=== PATIENT | female | born 2000 | race Caucasian/White ===

== ENCOUNTER 2025-04-30 08:36 | Emergency (ER) | payer OTHER ==
[~2025-04-30] VITALS: Ht 167.6 cm; Wt 69.4 kg
[2025-04-30] MEDS ORDERED: PNV,1TAB3 PO (09:03)
[2025-04-30 11:10] LABS: BASO # 0.0 10^3/uL (0.0-0.2); BASO % 0.2 % (0.0-1.0); EOS # 0.0 10^3/uL (0.0-0.5); EOS % 0.4 % (0.0-3.0); LYMPH # 2.3 10^3/uL (1.5-5.0); LYMPH % 22.3 % (24.0-44.0); MONO # 0.5 10^3/uL (0.0-0.8); MONO % 5.1 % (2.0-8.0); NEUTROPHILS # 7.5 10^3/uL (1.5-8.5); NEUTROPHILS % 71.7 % (36.0-66.0)
[2025-04-30 11:44] LABS: ALT/SGPT 10 U/L (7.0-40); AST/SGOT 19 U/L (<34); CALCIUM LEVEL 9.5 MG/DL (8.5-10.1); CARBON DIOXIDE LEVEL 19 MMOL/L (20-31); CHLORIDE LEVEL 104 MMOL/L (98-107); CREATININE FOR GFR 0.44 MG/DL (0.55-1.30); GLOMERULAR FILTRATION RATE > 90.0 (>60); POTASSIUM SERUM 4.6 MMOL/L (3.5-5.1); SODIUM LEVEL 138 MMOL/L (136-145)
[2025-04-30 11:50] LABS: HCG, SERUM QUALITATIVE POSITIVE (NEGATIVE)
[2025-04-30 12:17] LABS: KETONE, URINE AUTO RFX 1+ mg/dL (NEGATIVE); LEUKOCYTE ESTERASE UR AUTO RFX NEGATIVE (NEGATIVE); MUCUS, URINE RFX SMALL (NEGATIVE); NITRITE, URINE AUTO RFX NEGATIVE (NEGATIVE); RBC, URINE AUTO RFX 0 /HPF (0-3); SQUAM EPITHELIAL CELL UR AURFX 1 /HPF (0-6); WBC, URINE AUTO RFX 2 /HPF (0-3)
[2025-04-30] MEDS: ONDANSETRON 4MG ORAL DISINTEGRATING TAB PO ONE (12:37)
[2025-04-30] MEDS: NS (Normal Saline) 0.9% 1,000 ML IV ONE (12:50)
[2025-04-30] MEDS ORDERED: HOME MED LIST COMPLETE! XX SCH (13:15)
[2025-04-30 14:30] VITALS: BP 115/63; TEMP 98.3; O2SAT 100
[2025-04-30] MEDS ORDERED: ONDA-282 PO (14:37)
== END 2025-04-30 14:48 | disposition home or self-care (01) ==
LOC: M ED 08:36
DX: O21.8 Other vomiting complicating pregnancy (principal); G90.A Postural orthostatic tachycardia syndrome [POTS]; Z3A.01 Less than 8 weeks gestation of pregnancy; Z79.83 Long term (current) use of bisphosphonates; Z79.899 Other long term (current) drug therapy

== ENCOUNTER 2025-05-02 12:09 | Emergency (ER) | payer OTHER ==
[~2025-05-02] VITALS: Ht 167.6 cm; Wt 69.3 kg
[~2025-05-02 12:09] MED LIST: ONDA-282 PO; PNV,1TAB3 PO
[2025-05-02 13:39] LABS: BASO # 0.0 10^3/uL (0.0-0.2); BASO % 0.2 % (0.0-1.0); EOS # 0.0 10^3/uL (0.0-0.5); EOS % 0.3 % (0.0-3.0); LYMPH # 2.4 10^3/uL (1.5-5.0); LYMPH % 19.9 % (24.0-44.0); MONO # 0.7 10^3/uL (0.0-0.8); MONO % 5.9 % (2.0-8.0); NEUTROPHILS # 8.7 10^3/uL (1.5-8.5); NEUTROPHILS % 73.3 % (36.0-66.0); PLATELET COUNT, AUTOMATED 336 10^3/uL (150-450)
[2025-05-02 14:08] LABS: ALT/SGPT 10 U/L (7.0-40); AST/SGOT 13 U/L (<34); CALCIUM LEVEL 9.2 MG/DL (8.5-10.1); CARBON DIOXIDE LEVEL 22 MMOL/L (20-31); CHLORIDE LEVEL 107 MMOL/L (98-107); CREATININE FOR GFR 0.47 MG/DL (0.55-1.30); GLOMERULAR FILTRATION RATE > 90.0 (>60); POTASSIUM SERUM 4.2 MMOL/L (3.5-5.1); SODIUM LEVEL 141 MMOL/L (136-145)
[2025-05-02 14:19] LABS: KETONE, URINE AUTO RFX TRACE mg/dL (NEGATIVE); LEUKOCYTE ESTERASE UR AUTO RFX NEGATIVE (NEGATIVE); MUCUS, URINE RFX SMALL (NEGATIVE); NITRITE, URINE AUTO RFX NEGATIVE (NEGATIVE); RBC, URINE AUTO RFX 2 /HPF (0-3); SQUAM EPITHELIAL CELL UR AURFX 2 /HPF (0-6); WBC, URINE AUTO RFX 1 /HPF (0-3)
[2025-05-02 15:17] LABS: HCG, SERUM QUANTITATIVE 165215.2 MIU/ML (<4.2)
[2025-05-02 15:42] VITALS: BP 110/59; TEMP 98.3; O2SAT 100
== END 2025-05-02 16:54 | disposition left against medical advice (07) ==
LOC: M ED 12:09
DX: Z53.21 Procedure and treatment not carried out due to patient leaving prior to being seen by health care provider (principal)

== ENCOUNTER 2025-06-22 21:05 | Emergency (ER) | payer OTHER ==
[~2025-06-22] VITALS: Ht 165.1 cm; Wt 70.2 kg
[2025-06-22 21:42] LABS: KETONE, URINE AUTO RFX NEGATIVE (NEGATIVE); LEUKOCYTE ESTERASE UR AUTO RFX 1+ (NEGATIVE); MUCUS, URINE RFX SMALL (NEGATIVE); NITRITE, URINE AUTO RFX NEGATIVE (NEGATIVE); RBC, URINE AUTO RFX 2 /HPF (0-3); SQUAM EPITHELIAL CELL UR AURFX 3 /HPF (0-6); WBC, URINE AUTO RFX 3 /HPF (0-3)
[2025-06-22 23:16] LABS: BASO # 0.0 10^3/uL (0.0-0.2); BASO % 0.2 % (0.0-1.0); EOS # 0.2 10^3/uL (0.0-0.5); EOS % 1.0 % (0.0-3.0); LYMPH # 3.9 10^3/uL (1.5-5.0); LYMPH % 25.9 % (24.0-44.0); MONO # 1.1 10^3/uL (0.0-0.8); MONO % 7.1 % (2.0-8.0); NEUTROPHILS # 9.9 10^3/uL (1.5-8.5); NEUTROPHILS % 65.5 % (36.0-66.0); PLATELET COUNT, AUTOMATED 330 10^3/uL (150-450)
[2025-06-22 23:39] LABS: ALT/SGPT < 9 U/L (7.0-40); AST/SGOT 14 U/L (<34); CALCIUM LEVEL 8.9 MG/DL (8.5-10.1); CARBON DIOXIDE LEVEL 24 MMOL/L (20-31); CHLORIDE LEVEL 106 MMOL/L (98-107); CREATININE FOR GFR 0.51 MG/DL (0.55-1.30); GLOMERULAR FILTRATION RATE > 90.0 (>60); POTASSIUM SERUM 4.0 MMOL/L (3.5-5.1); SODIUM LEVEL 141 MMOL/L (136-145)
[2025-06-23 00:22] VITALS: BP 121/72; TEMP 97.7; O2SAT 99
== END 2025-06-23 00:23 | disposition home or self-care (01) ==
LOC: M ED 21:05
DX: O44.51 Low lying placenta with hemorrhage, first trimester (principal); Z3A.15 15 weeks gestation of pregnancy; Z79.83 Long term (current) use of bisphosphonates; Z79.899 Other long term (current) drug therapy

== ENCOUNTER → 2025-07-22 | Outpatient (CLI) | payer OTHER | LOC: M WHC 08:31 | PROVIDERS: ATTEND Nurse Practitioner Family | DX: Z34.80 Encounter for supervision of other normal pregnancy, unspecified trimester (principal); Z3A.19 19 weeks gestation of pregnancy ==

== ENCOUNTER → 2025-09-10 | Outpatient (CLI) | payer OTHER ==
[2025-09-10 15:20] LABS: PLATELET COUNT, AUTOMATED 410 10^3/uL (150-450)
[2025-09-10 15:27] LABS: GLUCOSE CHALLENGE TEST 1 HOUR 151 MG/DL (LESS THAN 140)
[2025-09-10 15:55] LABS: HIV 1&2 SCREEN NEGATIVE (NEGATIVE)
[2025-09-10 16:03] LABS: HEPATITIS C VIRUS ABY INDEX 0.14 INDEX (<0.8)
[2025-09-10 16:24] LABS: Trichomonas vaginalis (AMP) NOT DETECTED (NEGATIVE)
[2025-09-10 16:47] LABS: GC DNA AMPLIFICATION NEGATIVE (NEGATIVE)
== END ==
LOC: M PLALAB 11:32
PROVIDERS: ATTEND Nurse Practitioner Family
DX: Z34.80 Encounter for supervision of other normal pregnancy, unspecified trimester (principal)

== ENCOUNTER → 2025-09-17 | Outpatient (CLI) | payer OTHER | LOC: M LAB 06:25 | PROVIDERS: ATTEND Nurse Practitioner Family | DX: R73.01 Impaired fasting glucose (principal) ==

== ENCOUNTER → 2025-10-15 | Outpatient (CLI) | payer OTHER | LOC: M RAD 06:15 | PROVIDERS: ATTEND Nurse Practitioner Family | DX: Z34.83 Encounter for supervision of other normal pregnancy, third trimester (principal) ==